=== PATIENT | female | born 1980 | race Caucasian/White ===

== ENCOUNTER 2016-09-05 18:14 | Emergency (ER) | payer BC ==
[2016-09-05 18:36] VITALS: BP 128/80
[2016-09-05] MEDS ORDERED: Amoxicillin/Clavulanate TAB* 875 MG PO ONE (19:08)
--- NOTE | 2016-09-05 19:13 | ED ---
Bite Injury/Animal - HPI Summary HPI Summary: 35F presents with dog bite from boyfriends dog today. The dog had his immunizations up to date. She had her tetanus in 2013. She has abrasion under right armpit and across right breast. She states the dog attacked her and would not let go. She states the area is very painful. - History of Current Complaint Chief Complaint: UCBiteInjury Stated Complaint: DOG BITE Time Seen by Provider: 09/05/16 18:40 Hx Last Menstrual Period: 08/09/16 - Allergies/Home Medications Allergies/Adverse Reactions: Allergies Allergy/AdvReac Type Severity Reaction Status Date / Time Diphenhydramine Allergy Shortness Verified 09/05/16 18:35 [From Benadryl] of Breath Hydrocodone [From Vicodin] Allergy GI Upset Verified 09/05/16 18:35 PMH/Surg Hx/FS Hx/Imm Hx Endocrine/Hematology History: Denies: Hx Anticoagulant Therapy, Hx Diabetes, Hx Thyroid Disease Cardiovascular History: Denies: Hx Hypertension, Hx Pacemaker/ICD Respiratory History: Denies: Hx Asthma, Hx Chronic Obstructive Pulmonary Disease (COPD) GI History: Denies: Hx Ulcer History: Denies: Hx Renal Disease Sensory History: Denies: Hx Hearing Aid Neurological History: Denies: Hx Dementia, Hx Seizures Psychiatric History: Denies: Hx Panic Disorder, Hx Substance Abuse - Surgical History Surgery Procedure, Year, and Place: rt meniscus transplant, csection,ovarian cyst removed Infectious Disease History: No Infectious Disease History: Denies: Hx Clostridium Difficile, Hx Hepatitis, Hx Human Immunodeficiency Virus (HIV), Traveled Outside the [place] in Last 30 Days - Family History Known Family History: Positive: Hypertension - Social History Alcohol Use: None Substance Use Type: Reports: None Smoking Status (MU): Never Smoked Tobacco Review of Systems Negative: Fever Negative: Chest Pain Negative: Shortness Of Breath Positive: Bruising, Other - abrasion of right armpit and breast All Other Systems Reviewed And Are Negative: Yes Physical Exam Triage Information Reviewed: Yes Vital Signs On Initial Exam: Initial Vitals Temp Pulse Resp BP Pulse Ox 100.2 F 77 20 128/80 99 09/05/16 18:30 09/05/16 18:30 09/05/16 18:30 09/05/16 18:30 09/05/16 18:30 Vital Signs Reviewed: Yes Appearance: Positive: Pain Distress Skin: Positive: Other - 4cm abrasion under right armpit with 1cm open laceration in center, 8cm abrasion across right breast Head/Face: Positive: Normal Head/Face Inspection Eyes: Positive: Normal, Conjunctiva Clear Respiratory/Lung Sounds: Positive: Clear to Auscultation, Breath Sounds Present Cardiovascular: Positive: Normal, RRR Diagnostics - Vital Signs Vital Signs Temp Pulse Resp BP Pulse Ox 09/05/16 18:30 100.2 F 77 20 128/80 99 - Laboratory Lab Statement: Any lab studies that have been ordered have been reviewed, and results considered in the medical decision making process. Bite Injury Course/Dx - Course Course Of Treatment: 35F presents with bite to right armpit and breast. tetanus up to date. dog rabies up to date. has bite under right armpit and what appears to be scratch across breast. Cleaned area with 500ml of saline. will place on augmentin. explained do not want to close area due to high rate of infection with dog bites. told to watch for infection and check wound daily. patient understands and agrees with plan - Diagnoses Differential Diagnosis/HQI/PQRI: Positive: Laceration, Puncture, Rabies Exposure , Other - abrasion Provider Diagnosis: Dog bite Discharge - Discharge Plan Condition: Good Disposition: HOME Prescriptions: Amoxicillin/Clavulanate TAB* [Augmentin TAB 875*] 875 mg PO BID #13 tab Patient Education Materials: Animal Bite (ED) Referrals: Jcarlos Perez MD [Primary Care Provider] - Additional Instructions: Take antibiotic twice a day for 7 days, first dose given in UC Change the bandage once a day and place neosporin on area Keep area clean and dry Place ice on area Take ibuprofen or Tylenol every 6 hours Follow up with primary within 5 days for wound check Return to ED if develop any signs of infection such as fever, spreading redness , or pus
== END 2016-09-05 19:35 | disposition home or self-care (01) ==
LOC: UCEAST 18:14
DX: S40.811A Abrasion of right upper arm, initial encounter (principal); S21.011A Laceration without foreign body of right breast, initial encounter; W54.0XXA Bitten by dog, initial encounter; Y93.9 Activity, unspecified; Y92.9 Unspecified place or not applicable
CPT/HCPCS: 99212; A9270-GY; G0463

== ENCOUNTER 2016-11-01 20:13 | Emergency (ER) | payer BC ==
[2016-11-01 20:18] VITALS: BP 128/85
--- NOTE | 2016-11-01 21:04 | UC ---
Headache HPI - HPI Summary HPI Summary: complaint of migraine that started this morning woke her up from sleep constant throbbing stabbing pain above her right eye feels nauseated photophobiia took some exedrin today this morning at 6:30 and 1 at 3:00- no relief of headache hx of migraines and this one feels like her normal migraines usually gets imitrex and goes to sleep with relief Dr Hinojosa is PCP - History Of Current Complaint Chief Complaint: UCHeadache Stated Complaint: HEADACHE Time Seen by Provider: 11/01/16 20:56 Hx Last Menstrual Period: 2 WEEKS AGO - Allergies/Home Medications Allergies/Adverse Reactions: Allergies Allergy/AdvReac Type Severity Reaction Status Date / Time Diphenhydramine Allergy Shortness Verified 11/01/16 20:18 [From Benadryl] of Breath Hydrocodone [From Vicodin] Allergy GI Upset Verified 11/01/16 20:18 Home Medications: Home Medications [id number] [Excedrin Migraine 250-250-65 mg] 1 tab PO PRN [History] Control* 11/01/16 [History Confirmed 11/01/16] Lactobacillus [Probiotic] 1 cap PO 11/01/16 [History] Multiple Vitamins W/ Minerals [Vitamins & Minerals] 1 tab PO DAILY 11/01/16 [ History Confirmed 11/01/16] PMH/Surg Hx/FS Hx/Imm Hx Previously Healthy: Yes Other History Of: Negative For: Anticoagulant Therapy - Surgical History Surgical History: Yes Surgery Procedure, Year, and Place: rt meniscus transplant, csection,ovarian cyst removed - Family History Known Family History: Positive: Hypertension Negative: Cardiac Disease, Diabetes - Social History Occupation: Employed Full-time Lives: With Family Alcohol Use: Occasionally Substance Use Type: None Smoking Status (MU): Never Smoked Tobacco Review of Systems Constitutional: Negative Skin: Negative Eyes: Photophobia ENT: Negative Respiratory: Negative Cardiovascular: Negative Gastrointestinal: Negative Genitourinary: Negative Motor: Negative Neurovascular: Negative Musculoskeletal: Negative Neurological: Headache Psychological: Negative All Other Systems Reviewed And Are Negative: Yes Physical Exam Triage Information Reviewed: Yes Appearance: No Pain Distress, Well-Nourished Vital Signs: Initial Vital Signs Temp 97.9 F 11/01/16 20:15 Pulse 74 11/01/16 20:15 Resp 16 11/01/16 20:15 BP 128/85 11/01/16 20:15 Pulse Ox 99 11/01/16 20:15 Vital Signs Reviewed: Yes Eyes: Positive: Conjunctiva Clear ENT: Positive: Pharynx normal, TMs normal. Negative: Nasal congestion Neck: Positive: No Lymphadenopathy Respiratory: Positive: Lungs clear, Normal breath sounds, No respiratory distress, No accessory muscle use Cardiovascular: Positive: RRR, No Murmur, Pulses Normal, Brisk Capillary Refill Abdomen Description: Positive: Nontender, Soft Bowel Sounds: Positive: Present Musculoskeletal: Positive: No Edema Neurological: Positive: Alert, Other: - CN ll-[id number] normal, negative [place] Psychological Exam: Normal Skin Exam: Normal Re-Evaluation - Re-Evaluation First Eval Re-Evaluation Time: 21:48 Change: Improved - headache pain lessened Headache Course/Dx - Course Course Of Treatment: no red flags to warrant imaging - Differential Dx/Diagnosis Differential Diagnosis/HQI/PQRI: Migraine, Sinus Headache, Tension Headache Provider Diagnoses: migraine headache Discharge - Discharge Plan Condition: Stable Disposition: HOME Patient Education Materials: Migraine Headache (ED) Referrals: Jason Hinojosa MD [Primary Care Provider] - Additional Instructions: Increase fluids and rest Take excedrin for headache pain as needed Please review your discharge instructions. If your symptoms do not improve please call your primary care provider or return to urgent care.
[2016-11-01] MEDS ORDERED: SUMAtriptan SQ* 6 MG/0.5 ML VIAL SUBCUT ONE (21:07)
== END 2016-11-01 21:59 | disposition home or self-care (01) ==
LOC: UCEAST 20:13
DX: G43.909 Migraine, unspecified, not intractable, without status migrainosus (principal)
CPT/HCPCS: 96372; 99212; G0463; J3030

== ENCOUNTER 2016-12-26 09:19 | Emergency (ER) | payer BC ==
[2016-12-26] MEDS ORDERED: Ondansetron ODT TAB* 4 MG PO ONE (09:47)
--- NOTE | 2016-12-26 10:32 | UC ---
Headache HPI - HPI Summary HPI Summary: PT WOKE UP THIS MORNING WITH MIGRAINE LEE. THROBBING PAIN BEHIND RIGHT EYE WITH NAUSEA, VOMITING, PHOTOPHOBIA AND PHONOPHOBIA. PT IS HEAVING AND VOMITING ON ARRIVAL. TOOK IMITREX THIS MORNING BUT IT MAY HAVE BEEN TOO LATE FOR IT TO BE EFFECTIVE. - History Of Current Complaint Chief Complaint: Samy Stated Complaint: LIGHT-HEADED,HEADACHE,VOMITING Time Seen by Provider: 12/26/16 09:47 Hx Obtained From: Patient, Family/Alarm Installer - Hx Last Menstrual Period: 2 WEEKS AGO Onset/Duration: Sudden Onset, Lasting Hours, Still Present Pain Intensity: 8 Pain Scale Used: 0-10 Numeric Timing: Constant Character: Throbbing, Typical Headache Location of Headache: Frontal - BEHIND RIGHT EYE Aggravating Factor: Bright Lights Allevating Factors: Nothing Associated Signs And Symptoms: Positive: Nausea, Vomiting. Negative: Dizziness - Allergies/Home Medications Allergies/Adverse Reactions: Allergies Allergy/AdvReac Type Severity Reaction Status Date / Time Diphenhydramine Allergy Shortness Verified 12/26/16 09:40 [From Benadryl] of Breath Hydrocodone [From Vicodin] AdvReac GI Upset Verified 12/26/16 09:40 Home Medications: Home Medications SUMAtriptan TAB* [Imitrex TAB*] 50 mg PO PRN 12/26/16 [History] PMH/Surg Hx/FS Hx/Imm Hx Respiratory History: Asthma Neurological History: Migraine Other History Of: Negative For: Anticoagulant Therapy - Surgical History Surgical History: Yes Surgery Procedure, Year, and Place: rt meniscus transplant, csection,ovarian cyst removed - Family History Known Family History: Positive: Hypertension Negative: Cardiac Disease, Diabetes - Social History Alcohol Use: Occasionally Substance Use Type: None Smoking Status (MU): Never Smoked Tobacco Review of Systems Constitutional: Negative Eyes: Photophobia ENT: Negative Respiratory: Negative Cardiovascular: Negative Gastrointestinal: Vomiting, Nausea Neurological: Headache All Other Systems Reviewed And Are Negative: Yes Physical Exam Triage Information Reviewed: Yes Appearance: Well-Nourished, Pain Distress - MODERATE Vital Signs: Initial Vital Signs Temp 97.6 F 12/26/16 09:23 Pulse 77 12/26/16 09:23 Resp 17 12/26/16 09:23 BP 115/77 12/26/16 09:23 Pulse Ox 100 12/26/16 09:23 Vital Signs Reviewed: Yes Eyes: Positive: Conjunctiva Clear ENT: Positive: Hearing grossly normal Neck: Positive: Supple Respiratory: Positive: No respiratory distress, No accessory muscle use Cardiovascular: Positive: Pulses Normal Abdomen Description: Positive: Soft Musculoskeletal: Positive: No Edema Neurological: Positive: Alert Psychological: Positive: Normal Response To Family, Age Appropriate Behavior Skin: Negative: rashes Re-Evaluation - Re-Evaluation First Eval Re-Evaluation Time: 11:41 - FEELS BETTER AFTER 1L NS AND 30MG TORADOL AND 4MG ZOFRAN Change: Improved Headache Course/Dx - Differential Dx/Diagnosis Provider Diagnoses: MIGRAINE LEE Discharge - Discharge Plan Condition: Stable Disposition: HOME Prescriptions: Ketorolac TAB * [Toradol TAB *] 10 mg PO Q6H PRN #20 tab PRN Reason: Headache Ondansetron ODT TAB* [Zofran Odt TAB*] 4 mg PO Q6H PRN #20 tab.odt PRN Reason: Nausea/Vomiting Patient Education Materials: Migraine Headache (ED) Referrals: Jason Hinojosa MD [Primary Care Provider] - If Needed Additional Instructions: YOUR HEADACHE WAS IMPROVED AFTER 1L SALINE, 30MG TORADOL AND 4MG ZOFRAN TODAY. STAY WELL HYDRATED AND FOLLOW-UP WITH YOUR PCP TO DISCUSS FURTHER MANAGEMENT OF YOUR MIGRAINES. LAST TIME YOU WERE HERE 11/01 YOU RECEIVED IMITREX SUBCUTANEOUSLY.
[2016-12-26] MEDS ORDERED: Ketorolac INJ* 30 MG/ML 1 ML VIAL IV PUSH ONE (10:39)
[2016-12-26] MEDS ORDERED: NS 0.9% 1000 ML* 1,000 ML IV SCH (10:45)
[2016-12-26 11:29] VITALS: BP 120/74
== END 2016-12-26 11:45 | disposition home or self-care (01) ==
LOC: UCEAST 09:19
DX: G43.909 Migraine, unspecified, not intractable, without status migrainosus (principal); R11.2 Nausea with vomiting, unspecified; J45.909 Unspecified asthma, uncomplicated; Z88.5 Allergy status to narcotic agent
CPT/HCPCS: 96361; 96376; 99212; A9270-GY; G0463; J1885

== ENCOUNTER → 2017-01-29 00:16 | Emergency (ER) | payer BC ==
[2017-01-29 00:24] VITALS: BP 126/78
== END | disposition left against medical advice (07) ==
LOC: ED 00:16
DX: J02.9 Acute pharyngitis, unspecified (principal)
CPT/HCPCS: 87651